=== PATIENT | female | born 1990 | race Caucasian/White ===

== ENCOUNTER 2017-01-13 13:42 | Day surgery (SDC) | payer OTHER ==
[2017-01-10 15:08] VITALS: BMI 19.5
[~2017-01-13 13:42] MED LIST: DEXAMETHASONE SOD PHOSPHATE 10 MG/ML 1 ML VIAL IV ONE; HEPARIN SODIUM,PORCINE 5,000 UNIT/ML 1 ML VIAL SQ ONE; HYDROmorphone 1 MG/ML 1 ML SYRINGE IVP PRN; LACTATED RINGERS 1,000 ML IV SCH; MIDAZOLAM 2 MG/2 ML VIAL IV PRN; ONDANSETRON 4 MG/2 ML VIAL IVP ONE; SCOPOLAMINE 1.5MG/72HR PATCH TRANSDERM ONE; ceFAZolin 2 GM in SODIUM CHLORIDE 0.9% 100 ML IVPB ONE
[2017-01-13] MEDS ORDERED: LIDOCAINE 1% 20 ML VIAL (10MG/ML) FOR IV START SQ ONE (14:07)
[2017-01-13] MEDS ORDERED: GLYCOPYRROLATE 0.2 MG/ML 2 ML VIAL ONE (15:30)
[2017-01-13] MEDS ORDERED: ROCURONIUM BROMIDE 10 MG/ML 10 ML VIAL IV ONE (15:30)
[2017-01-13] MEDS ORDERED: MIDAZOLAM 2 MG/2 ML VIAL ONE (15:30)
[2017-01-13] MEDS ORDERED: KETOROLAC 30 MG/ML 1 ML VIAL ONE (15:30)
[2017-01-13] MEDS ORDERED: LIDOCAINE 1% INJ 10MG/ML (20 ML MDV) ONE (15:30)
[2017-01-13] MEDS ORDERED: NEOSTIGMINE 1 MG/ML 10 ML VIAL ONE (15:30)
[2017-01-13] MEDS ORDERED: fentaNYL (PF) 50 MCG/ML 2 ML AMP ONE (15:30)
[2017-01-13] MEDS ORDERED: SUCCINYLCHOLINE CHLORIDE 100 MG/5 ML SYR IV ONE (15:30)
[2017-01-13] MEDS ORDERED: PROPOFOL 10 MG/ML 20 ML VIAL IV ONE (15:30)
[2017-01-13] MEDS ORDERED: BUPIVACAIN-EPI 0.5%-1:200,000 30 ML VIAL SQ ONE ×2 (15:39→16:47)
--- NOTE | 2017-01-13 15:54 | P.OP ---
Date of Procedure: 01/13/17 Preoperative Diagnosis: Postoperative Diagnosis: Procedure(s) Performed: Implants: Ventralex ST Hernia Patch 6.5 cm circular Anesthesia: GETA, local Pathology: none sent Condition: stable Disposition: PACU Indications for Procedure: Operative Findings: Description of Procedure: The patient was brought to the operating room and placed in supine position. General anesthesia with endotracheal intubation was performed as per anesthesia team. The right arm was tucked against the body and a footboard was applied. Chlorhexidine was used to prep the skin followed by application of sterile drapes and Ioban dressing. A timeout was performed to verify correct patient and correct procedure. Patient was confirmed to receive perioperative IV antibiotics , bilateral SCDs and 5000 units of subcutaneous heparin for VTE prophylaxis. A 5 mm skin incision was made along the left midaxillary line and a Veress needle was inserted to establish the pneumoperitoneum to a pressure of 15 mm of Hg. Using a 5 mm 30 laparoscope the peritoneal cavity was entered using the Optiview technique. Additional 12 mm trocar was placed in the mid axillary line in the left mid abdomen and robotic 8 mm trocar in the left lower abdomen. The 5 mm trocar was upsized to 8 mm robotic trocar. The da Malina robot was then docked. The 30 robotic camera was used. A robotic prograsp and monopolar scissors were inserted through 8 mm robotic trocars The hernia defect contained preperitoneal fat and omentum which were reduced using gentle traction and countertraction method. The falciform ligament was divided using monopolar scissors close to the anterior abdominal wall to create a landing zone for the mesh. A Sybotex circular mesh was tagged in the center using a prolene stitich and was rolled and introduced to the abdominal cavity via the 12 mm trocar. The hernia defect was closed primarily with running sutures using O- V lock by taking 1 cm bite on the fascia on either side of the defect. A David Danisha device was inserted through the middle of the hernia defect and the stay suture on the mesh was grasped to elevate the mesh against the anterior abdominal wall. The mesh was circumferentially sutured to the peritoneum of the anterior abdominal wall using 2-0 V lock without any folds or kinks. The robot was then undocked. Laparoscopic 30 degrees camera was reinserted. All trocar sites were examined. No evidence of bleeding. The 12 mm trocar site was closed using two transfascial sutures of 0 Vicryl which were placed using a Tipp24on device. The pneumoperitoneum was evacuated and all the skin incisions were closed using 4-0 Monocryl followed by Dermabond skin glue. Telfa and Tegaderm dressings were applied. The sponge, instrument and needle count were correct x2. Abdominal binder was applied. The patient was extubated and taken to post anesthesia care unit in stable condition.
[2017-01-13] MEDS ORDERED: LACTATED RINGERS 1,000 ML IV ONE ×2 (15:58)
[2017-01-13 17:28] VITALS: TEMP 98.1
[2017-01-13] MEDS ORDERED: ONDANSETRON 4 MG/2 ML VIAL IVP ONE (17:29)
[2017-01-13] MEDS ORDERED: HYDROmorphone 1 MG/ML 1 ML SYRINGE IVP ONE (17:33)
[2017-01-13 17:56] VITALS: RESP 16
[2017-01-13 19:04] VITALS: BP 136/80; PULSE 62
== END 2017-01-13 19:12 | disposition home or self-care (01) ==
LOC: OR 13:42
PROVIDERS: ATTEND Surgery
DX: K42.9 Umbilical hernia without obstruction or gangrene (principal); F17.200 Nicotine dependence, unspecified, uncomplicated; Z88.5 Allergy status to narcotic agent
CPT/HCPCS: 49652; S2900; 81025

== ENCOUNTER → 2019-05-02 | Outpatient (CLI) | payer OTHER ==
--- NOTE | 2019-05-02 11:38 | XR ---
EXAMINATION TYPE: XR shoulder complete RT DATE OF EXAM: 05/02/2019 COMPARISON: None HISTORY: Right shoulder pain TECHNIQUE: 3 views right shoulder FINDINGS: No acute fractures or dislocations are evident. Joint spaces preserved. Acromioclavicular j unction is normal. IMPRESSION: 1. Normal 3 view right shoulder.
== END | disposition home or self-care (01) ==
LOC: RADXRMAIN 11:11
PROVIDERS: ATTEND Family Medicine
DX: M25.511 Pain in right shoulder (principal)

== ENCOUNTER → 2020-09-08 | Outpatient (CLI) | payer OTHER ==
--- NOTE | 2020-09-09 07:40 | US ---
EXAMINATION TYPE: US pelvis complete transvag DATE OF EXAM: 09/08/2020 COMPARISON: NONE CLINICAL HISTORY: 29-year-old female R10.2 pelvic pain. TECHNIQUE: Transabdominal sonographic images of the pelvis were acquired. Transvaginal sonographic i mages were medically necessary to better assess the following anatomy: Endometrium Date of LMP: 3 years ago FINDINGS: EXAM MEASUREMENTS: Uterus: 6.3 x 3.9 x 4.6 cm Endometrial Stripe: 0.5 cm Right Ovary: 2.5 x 2.0 x 1.6 cm Left Ovary: 2.1 x 1.6 x 1.3 cm 1. Uterus: Retroverted and otherwise wnl 2. Endometrium: wnl, IUD visualized in good position 3. Right Ovary: wnl with follicular change 4. Left Ovary: wnl with follicular change 5. Bilateral Adnexa: wnl 6. Posterior cul-de-sac: wnl IMPRESSION: Retroverted uterus with IUD which appears appropriately positioned. Normal follicular change in the o varies. No pelvic free fluid.
== END | disposition home or self-care (01) ==
LOC: RADUSWWP 16:19
PROVIDERS: ATTEND Obstetrics & Gynecology
DX: N85.4 Malposition of uterus (principal); Z97.5 Presence of (intrauterine) contraceptive device
CPT/HCPCS: 76830; 76856

== ENCOUNTER 2021-12-07 08:28 | Outpatient (CLI) | payer OTHER ==
[2021-12-07 09:12] VITALS: BP 109/63; PULSE 66; RESP 15; TEMP 97.5
--- NOTE | 2021-12-07 22:04 | P.MSEPDOC ---
Presenting Problems - Arrival Data Date of Arrival on Unit: 12/07/21 Time of Arrival on Unit: 08:28 Mode of Transport: Ambulatory - Complaint OB-Reason for Admission/Chief Complaint: Decreased Movement Medical History - Information : 4 Para: 3 Term: 3 : 0 Abortions: Spontaneous or Elective: 0 Number of Living Children: 3 - Gestational Age Gestational Age by SANTOSH (wks/days): 28 Weeks and 6 Days - History Complications: Smoker Comment: pt state she has labs drawn for possible cholestasis on 12/06/2021 Review of Systems - Review of Systems Constitutional: No problems Breast: No problems ENT: No problems Cardiovascular: No problems Respiratory: No problems Gastrointestinal: No problems Genitourinary: No problems Musculoskeletal: No problems Neurological: No problems Skin: Itching Vital Signs - Temperature Temperature: 97.5 F Temperature Source: Temporal Artery Scan - Pulse Brachial Pulse Rate: 66 Pulse Assessment Method: Automatic Cuff - Respirations Respiratory Rate: 15 Oxygen Delivery Method: Room Air O2 Sat by Pulse Oximetry: 100 - Blood Pressure Right Arm Blood Pressure: 109/63 Blood Pressure Mean: 78 Blood Pressure Source: Automatic Cuff Medical Screen Scoring - Assessment - Baby A Heart Rate - NICHD Category: Category I (Normal) Physician Notification - Physician Notified Physician Notified Date: 12/07/21 Physician Notified Time: 09:07 Physician: Lor Tucker New Order Received: Yes - Notification Comment Comment: reported pt arrived with c/o decreased movement. After cold apple juice, movement is active per pt with a reactive NST. DC pt home per t.o. Dr Tucker Maternal Triage Index - Maternal Triage Index Presenting for scheduled procedure w/no complaint: No - Stat/Priority 1 Stat Priority 1: No - Urgent/Priority 2 Urgent Priority 2: Yes Provider Notified: Lor Tucker Provider Notified Time: 09:07 Criteria Met for Priority 2: decreased movement - Prompt/Priority 3 Prompt Priority 3: No - Non-Urgent/Priority 4 Non-Urgent Priority 4: No Disposition - Disposition OB Disposition: Triage, Discharge to home, Written follow up instructions reviewed Discharge Date: 12/07/21 Discharge Time: 09:11 I agree with the RN Medical Screening Exam: Yes Case reviewed; plan agreed upon as documented in EMR&OBIX.: Yes Diagnosis: DECREASED MOVEMENTS, THIRD TRIMESTER, UNSP
== END 2021-12-07 09:14 | disposition home or self-care (01) ==
LOC: FBPOP 08:28
PROVIDERS: ATTEND Obstetrics & Gynecology
DX: O36.8130 Decreased fetal movements, third trimester, not applicable or unspecified (principal); Z3A.28 28 weeks gestation of pregnancy
CPT/HCPCS: 59025; G0463; 99213

== ENCOUNTER 2022-01-27 11:51 | Outpatient (CLI) | payer OTHER ==
[2022-01-27 12:57] VITALS: BP 101/58; PULSE 95; RESP 16; TEMP 97.1
--- NOTE | 2022-01-29 21:24 | P.MSEPDOC ---
Presenting Problems - Arrival Data Date of Arrival on Unit: 01/27/22 Time of Arrival on Unit: 11:51 Mode of Transport: Ambulatory - Complaint OB-Reason for Admission/Chief Complaint: Possible Onset of Labor Comment: Contrx since 929, q5-6min apart Medical History - Information : 4 Para: 3 Term: 3 Number of Living Children: 3 - Gestational Age Gestational Age by SANTOSH (wks/days): 36 Weeks and 1 Days Review of Systems - Review of Systems Constitutional: No problems Breast: No problems ENT: No problems Cardiovascular: No problems Respiratory: No problems Gastrointestinal: No problems Genitourinary: No problems Musculoskeletal: No problems Neurological: No problems Skin: No problems Vital Signs - Temperature Temperature: 97.1 F Temperature Source: Oral - Pulse Right Sitting Brachial Pulse Rate: 95 Pulse Assessment Method: Automatic Cuff - Respirations Respiratory Rate: 16 Oxygen Delivery Method: Room Air O2 Sat by Pulse Oximetry: 96 - Blood Pressure Right Arm Sitting Blood Pressure: 101/58 Blood Pressure Mean: 72 Blood Pressure Source: Automatic Cuff Medical Screen Scoring - Cervical Exam Dilation (cm): 1 Effacement (%): 0 Station: -3 Membranes: Intact - Assessment - Baby A Baseline FHR: 130 Heart Rate - NICHD Category: Category I (Normal) Physician Notification - Physician Notified Physician Notified Date: 01/27/22 Physician Notified Time: 12:26 Physician: Lor Tucker Order Received: Yes - Notification Comment Comment: Spk c\Dr. Tucker, advsd of pts arrival to triage, c/o contrx q5-6min x 2.5 hrs. SVE 1/thick/high. Reactive FHT. States pt may be discharged home or observed x 1 hr and. rechecked if pt requests. Pt ok c\discharge home. Maternal Triage Index - Maternal Triage Index Presenting for scheduled procedure w/no complaint: No - Stat/Priority 1 Stat Priority 1: No - Urgent/Priority 2 Urgent Priority 2: No - Prompt/Priority 3 Prompt Priority 3: Yes Criteria Met for Priority 3: Contrx Disposition - Disposition OB Disposition: Discharge to home, Written follow up instructions reviewed Discharge Date: 01/27/22 Discharge Time: 12:50 I agree with the RN Medical Screening Exam: Yes Case reviewed; plan agreed upon as documented in EMR&OBIX.: Yes Diagnosis: FALSE LABOR BEFORE 37 COMPLETED WEEKS OF GEST, THIRD TRI
== END 2022-01-27 12:50 | disposition home or self-care (01) ==
LOC: FBPOP 11:51
PROVIDERS: ATTEND Obstetrics & Gynecology
DX: O47.03 False labor before 37 completed weeks of gestation, third trimester (principal); Z3A.36 36 weeks gestation of pregnancy
CPT/HCPCS: 59025; G0463; 99213

== ENCOUNTER 2022-02-17 06:00 | Inpatient (IN) | payer OTHER ==
--- NOTE | 2022-02-16 20:18 | P.HPOB ---
History of Present Illness H&P Date: 02/16/22 Chief Complaint: Induction of labor This is a 31 y.o. female, 4, para 3, with an estimated date of confinement of 02/23/2022, estimated gestational age of 39-1/7 weeks, who presents for induction of labor. She complains of irregular contractions and pressure. labs: Hepatitis B surface antigen-neg RPR-NR Rubella-immune Blood type-A+ Antibody screen-neg HIV-NR Hgb-12.2 Random glucose-82 1 hr. GTT-108 GBS-neg Review of Systems Constitutional: Denies chills, Denies fever Eyes: denies blurred vision, denies pain Ears, nose, mouth and throat: Denies headache, Denies sore throat Cardiovascular: Denies chest pain, Denies shortness of breath Respiratory: Denies cough Gastrointestinal: Reports abdominal pain (irregular menses) Genitourinary: Reports pelvic pain, Reports , Denies dysuria, Denies hematuria Musculoskeletal: Reports low back pain Integumentary: Denies pruritus, Denies rash Neurological: Denies numbness, Denies weakness Psychiatric: Denies anxiety, Denies depression Past Medical History Past Medical History: GERD/Reflux Additional Past Medical History / Comment(s): UMBILICAL HERNIA. "HEAD COLD FOR PAST DAY OR SO." History of Any Multi-Drug Resistant Organisms: None Reported Past Surgical History: No Surgical Hx Reported Additional Past Surgical History / Comment(s): EXC WISDOM TEETH Past Anesthesia/Blood Transfusion Reactions: No Reported Reaction Past Psychological History: ADD/ADHD Smoking Status: Former smoker Past Alcohol Use History: None Reported Past Drug Use History: None Reported - Past Family History Mother Family Medical History: Diabetes Mellitus Medications and Allergies Home Medications Medication Instructions Recorded Confirmed Type Omeprazole [PriLOSEC] 10 mg PO PRN 01/27/22 01/27/22 History Vit No.180/Iron/Folic 1 each PO 02/16/22 History [ Plus Tablet] Allergies Allergy/AdvReac Type Severity Reaction Status Date / Time codeine AdvReac Vomiting Verified 01/27/22 12:04 Exam Osteopathic Statement: *. No significant issues noted on an osteopathic structural exam other than those noted in the History and Physical/Consult. HEENT: within normal limits Heart: regular rate and rhythm Lungs: clear to auscultation bilaterally Abd: , non-tender heart tones: 140's by doppler Extremities: neg Severiano's - OBG Physical Exam Breast: both: normal (no masses) Assessment and Plan (1) 39 weeks gestation of Status: Acute Code(s): Z3A.39 - 39 WEEKS GESTATION OF SNOMED Code(s): 19190142 Plan: Proceed with oxytocin induction of labor. Expectant management. Epidural anesthesia if desired.
[2022-02-17] MEDS ORDERED: TERBUTALINE 1 MG/ML VIAL SQ PRN (06:12)
[2022-02-17] MEDS ORDERED: OXYTOCIN 10 UNIT/ML 1 ML VIAL IM PRN (06:12)
[2022-02-17] MEDS ORDERED: CARBOPROST TROMETHAMINE 250 MCG/ML 1 ML AMP IM PRN (06:12)
[2022-02-17] MEDS ORDERED: LIDOCAINE 0.5% (PF) 5 MG/ML (50 ML SDV) SQ PRN (06:12)
[2022-02-17] MEDS ORDERED: METHYLERGONOVINE 0.2 MG/ML 1 ML AMP IM PRN (06:12)
[2022-02-17] MEDS ORDERED: LIDOCAINE 1% (10MG/ML) FOR IV START INTRADERMA PRN (06:12)
[2022-02-17] MEDS: LACTATED RINGERS 1,000 ML IV SCH ×3 (06:20→15:24)
[2022-02-17 06:32] LABS: Basophils # (A) 0.1 k/uL (0-0.2); Basophils % (A) 0 %; Eosinophils # (A) 0.1 k/uL (0-0.7); Eosinophils % (A) 1 %; HCT 33.8 % (34.0-46.0); Hypochromasia Slight; Lymphocytes # (A) 1.7 k/uL (1.0-4.8); Lymphocytes % (A) 14 %; MCH 27.8 pg (25.0-35.0); MCHC 32.6 g/dL (31.0-37.0); MCV 85.2 fL (80.0-100.0); Mean Platelet Volume 8.1; Monocytes # (A) 0.6 k/uL (0-1.0); Monocytes % (A) 5 %; Neutrophils # (A) 9.1 k/uL (1.3-7.7); Neutrophils % (A) 78 %; Platelet Count 300 k/uL (150-450); RBC 3.97 m/uL (3.80-5.40); RDW 13.7 % (11.5-15.5); WBC 11.8 k/uL (3.8-10.6)
[2022-02-17] MEDS: OXYTOCIN 30 UNITS/500 ML NS 30 UNIT in SALINE 1 500ML.BAG IV SCH ×2 (06:35→19:40)
[2022-02-17] MEDS: BUTORPHANOL 1 MG/ML 1 ML VIAL IV PRN ×2 (11:01→13:17)
[2022-02-17] MEDS ORDERED: SODIUM CHLORIDE 0.9% 100 ML BAG ONE (14:50)
[2022-02-17] MEDS ORDERED: ePHEDrine 50 MG/ML 1 ML VIAL ONE (14:50)
[2022-02-17] MEDS ORDERED: fentaNYL (PF) 50 MCG/ML 5 ML AMP ONE (14:50)
[2022-02-17] MEDS ORDERED: ROPIVACAINE 5MG/ML 20ML VIAL ONE (14:50)
--- NOTE | 2022-02-17 17:14 | P.PROBDLV ---
Vaginal Delivery Note - . Vaginal Delivery Note: The patient progressed to complete dilation after oxytocin induction of labor and artificial rupture membranes with clear fluid noted. She did receive a few doses of Stadol followed by epidural. Once reaching complete, she began pushing. 's head came to a crown. With one further push, the 's head delivered across the perineum followed by the anterior shoulder. At this time tight nuchal cord 2 was noted. It was doubly clamped and cut and then reduced around the 's head. With one further push the remainder the easily delivered. was immediately taken to warmer for evaluation. A viable female infant was noted with scores of 6 at 1 minute and 8 at 5 minutes. weight is 7 lbs. 3 oz. Placenta delivered shortly thereafter, intact, with a three-vessel cord. Of note there is a very marginal cord insertion with vessels going through the membranes. Uterus contracted fairly well after uterine massage was carried out and oxytocin was given. Inspection of the perineum revealed a very small abrasion but no active bleeding. Estimated blood loss is approximately 150 mL's. Both mother and infant are in stable condition.
[2022-02-17] MEDS ORDERED: LANOLIN CREAM 5 GM TUBE TOPICAL PRN (17:59)
[2022-02-17] MEDS ORDERED: diphenhydrAMINE 50 MG/ML 1 ML VIAL IVP PRN ×2 (17:59)
[2022-02-17] MEDS ORDERED: diphenhydrAMINE 50 MG CAP PO PRN (17:59)
[2022-02-17] MEDS ORDERED: BENZOCAINE/MENTHOL SPRAY 1 GM/SPRAY AEROSOL TOPICAL PRN (17:59)
[2022-02-17] MEDS ORDERED: SIMETHICONE 80 MG CHEWABLE PO PRN (17:59)
[2022-02-17] MEDS ORDERED: diphenhydrAMINE 25 MG CAP PO PRN (17:59)
[2022-02-17] MEDS ORDERED: HYDROCORTISONE 2.5% RECTAL CREAM 30 GM TUBE RECTAL PRN (17:59)
[2022-02-17] MEDS ORDERED: ZOLPIDEM 5 MG TAB PO PRN (17:59)
[2022-02-17] MEDS: IBUPROFEN 600 MG TAB PO PRN (21:39)
[2022-02-17] MEDS: SENNOSIDES-DOCUSATE SODIUM 1 EACH TAB PO SCH (21:44)
[2022-02-18] MEDS: IBUPROFEN 600 MG TAB PO PRN ×3 (02:56→14:37)
[2022-02-18 04:48] VITALS: TEMP 97.9
[2022-02-18 06:29] LABS: Basophils % (A) 0 %; Eosinophils # (A) 0.1 k/uL (0-0.7); Eosinophils % (A) 1 %; HCT 34.5 % (34.0-46.0); HGB 11.1 gm/dL (11.4-16.0); Hypochromasia Slight; Lymphocytes # (A) 1.5 k/uL (1.0-4.8); Lymphocytes % (A) 14 %; MCH 27.5 pg (25.0-35.0); MCHC 32.2 g/dL (31.0-37.0); MCV 85.6 fL (80.0-100.0); Mean Platelet Volume 8.2; Monocytes # (A) 0.6 k/uL (0-1.0); Monocytes % (A) 6 %; Neutrophils # (A) 8.2 k/uL (1.3-7.7); Neutrophils % (A) 77 %; Platelet Count 252 k/uL (150-450); RBC 4.03 m/uL (3.80-5.40); RDW 13.8 % (11.5-15.5); WBC 10.6 k/uL (3.8-10.6)
[2022-02-18] MEDS: SENNOSIDES-DOCUSATE SODIUM 1 EACH TAB PO SCH (08:39)
[2022-02-18] MEDS ORDERED: ACETAMINOPHEN TAB 325 MG TAB PO PRN (08:42)
[2022-02-18 08:45] VITALS: BP 117/65; PULSE 98; RESP 14
--- NOTE | 2022-02-18 09:57 | P.DS ---
Providers Date of admission: 02/17/22 06:02 Expected date of discharge: 02/18/22 Attending physician: Lor Tucker Primary care physician: Stated None - Discharge Diagnosis(es) (1) 39 weeks gestation of Current Visit: No Status: Acute Hospital Course: This is a 31-year-old female 4 para 3 who presented for induction of labor. She underwent oxytocin induction of labor and delivered vaginally a viable female infant on 02/17/2022 with scores of 6 at 1 minute and 8 at 5 minutes and infant weight of 7 lbs. 3 oz. Her course has been uncomplicated. She is breast-feeding. Lochia is decreasing. Pain is fairly well controlled with ibuprofen and Tylenol. Vital signs are stable. Abdomen is soft with fundus firm and minimal tenderness noted. Extremities show negative Homans. Impression is status post vaginal delivery day #1. Plan is to discharge home later today. Routine instructions are given. She has a breast pump. She will be given a prescription for ibuprofen. She is advised to call the office if she has any further questions or concerns prior to her appointment time. She is advised follow-up in the office in 6 weeks for check. Procedures: Oxytocin induction of labor Spontaneous vaginal delivery of a viable female infant on 02/17/2022 Patient Condition at Discharge: Stable Plan - Discharge Summary New Discharge Prescriptions: New RX: Ibuprofen [Motrin] 600 mg PO Q6HR PRN #60 tab PRN Reason: Mild Pain (Scale 1 To 3) No Action Omeprazole [PriLOSEC] 10 mg PO PRN PRN Reason: Heartburn Discharge Medication List Omeprazole [PriLOSEC] 10 mg PO PRN 01/27/22 [History] RX: Ibuprofen [Motrin] 600 mg PO Q6HR PRN #60 tab 02/18/22 [Rx] Follow up Appointment(s)/Referral(s): Lor Tucker DO [Doctor of Osteopathic Medicine] - 03/28/22 4:00 pm Activity/Diet/Wound Care/Special Instructions: Instructions 1. Do not begin any exercise program for 3 weeks. 2. Do not resume sexual relations for 3 weeks or longer if uncomfortable. 3. You may take tub baths or showers at any time. 4. You may use tampons if desired after 3 weeks. 5. Keep the area of episiotomy (stitches) clean and dry. 6. If you are not nursing, wear a good fitting, supportive bra during the day and limit fluid intake for at least 1 week to prevent breast engorgement. 7. Call the office, [phone], within the next week to make appointment for your 6 week checkup if it has not already been made. 8. Report any of the following occurrences to the doctor promptly: a. Heavy, excessive bleeding b. Chills, fever c. Burning or frequency of urination d. Pain or redness and breasts if nursing e. Increasing pain or swelling in episiotomy (stitches). In addition to the above instructions, the following additional should be followed: 1. No heavy lifting or straining (exercising) until after 6 week checkup. 2. Keep abdominal incision clean and dry: You may wear a dressing if more comfortable. 3. Make office appointment for 10 days after going home or as instructed by her doctor. Discharge Disposition: HOME SELF-CARE
== END 2022-02-18 18:00 | disposition home or self-care (01) | DRG 806 ==
LOC: 4FBP 06:02
PROVIDERS: ADMIT Obstetrics & Gynecology; ATTEND Obstetrics & Gynecology
PROC: 10E0XZZ Delivery of Products of Conception, External Approach (ICD-10-PCS; principal; 2022-02-17)
PROC: 3E033VJ Introduction of Other Hormone into Peripheral Vein, Percutaneous Approach (ICD-10-PCS; 2022-02-17)
PROC: 10907ZC Drainage of Amniotic Fluid, Therapeutic from Products of Conception, Via Natural or Artificial Opening (ICD-10-PCS; 2022-02-17)
DX: O69.1XX0 Labor and delivery complicated by cord around neck, with compression, not applicable or unspecified (principal); O44.23 Partial placenta previa NOS or without hemorrhage, third trimester; Z37.0 Single live birth; Z28.310 Unvaccinated for COVID-19; K21.9 Gastro-esophageal reflux disease without esophagitis; O99.62 Diseases of the digestive system complicating childbirth; Z79.899 Other long term (current) drug therapy; Z3A.39 39 weeks gestation of pregnancy; Z87.891 Personal history of nicotine dependence; Z86.59 Personal history of other mental and behavioral disorders; Z83.3 Family history of diabetes mellitus
CPT/HCPCS: 85025; 86850; 86900; 86901

== ENCOUNTER → 2022-04-25 | Outpatient (CLI) | payer OTHER ==
[2022-04-25 23:46] LABS: Basophils # (A) 0.03 X 10*3/uL (0.00-0.10); Basophils % (A) 0.4 %; Eosinophils # (A) 0.05 X 10*3/uL (0.04-0.35); Eosinophils % (A) 0.7 %; HCT 37.4 % (37.2-46.3); HGB 12.3 g/dL (12.0-15.0); Immature Grans, Automated 0.3 %; Lymphocytes # (A) 2.57 X 10*3/uL (0.90-5.00); Lymphocytes % (A) 36.2 %; MCH 26.9 pg (27.0-32.0); MCHC 32.9 g/dL (32.0-37.0); MCV 81.8 fL (80.0-97.0); Mean Platelet Volume 9.9 fL (9.5-12.2); Monocytes # (A) 0.51 X 10*3/uL (0.20-1.00); Monocytes % (A) 7.2 %; NRBC Per 100 WBC 0 /100 WBCS (0.0-0.0); Neutrophils # (A) 3.92 X 10*3/uL (1.80-7.70); Neutrophils % (A) 55.2 %; Platelet Count 328 X 10*3/uL (140-440); RBC 4.57 X 10*6/uL (4.10-5.20); RDW 16.2 % (11.5-14.5)
== END | disposition home or self-care (01) ==
LOC: LABPAT 14:50
PROVIDERS: ATTEND Obstetrics & Gynecology
DX: Z01.812 Encounter for preprocedural laboratory examination (principal)
CPT/HCPCS: 85025

== ENCOUNTER 2022-04-28 06:02 | Day surgery (SDC) | payer OTHER ==
[2022-04-26 13:15] VITALS: BMI 20.2
--- NOTE | 2022-04-27 18:42 | P.HPOB ---
History of Present Illness H&P Date: 04/27/22 Chief Complaint: Family planning This is a 31 y.o. female, 4, para 4, who presents for robotic-assisted laparoscopic bilateral tubal ligation via fulgaration with Mira for family planning. She recently delivered her last child. OB Hx: . History of 4 vaginal deliveries. [employer] Operator Hx: History of chlamydia treated in past. Social Hx: . Homemaker. Review of Systems Constitutional: Denies chills, Denies fever Eyes: denies blurred vision, denies pain Ears, nose, mouth and throat: Denies headache, Denies sore throat Cardiovascular: Denies chest pain, Denies shortness of breath Respiratory: Denies cough Gastrointestinal: Denies abdominal pain, Denies diarrhea, Denies nausea, Denies vomiting Genitourinary: Denies dysuria, Denies hematuria Musculoskeletal: Denies myalgias Integumentary: Denies pruritus, Denies rash Neurological: Denies numbness, Denies weakness Psychiatric: Reports difficulty concentrating, Denies anxiety, Denies depression Past Medical History Past Medical History: GERD/Reflux Additional Past Medical History / Comment(s): "Hole in heart since ". History of Any Multi-Drug Resistant Organisms: None Reported Past Surgical History: Hernia Repair Additional Past Surgical History / Comment(s): [place] teeth extracted, umbilical hernia repair. Past Anesthesia/Blood Transfusion Reactions: Previous Problems w/ Anesthesia, Family History of Problems w/ Anesthesia, Motion Sickness Additional Past Anesthesia/Blood Transfusion Reaction / Comment(s): Grandmother has hard time waking up. Past Psychological History: ADD/ADHD Smoking Status: Current every day smoker Past Alcohol Use History: None Reported Additional Past Alcohol Use History / Comment(s): SMOKER SINCE AGE 19, 1/2 PPD OR LESS. Past Drug Use History: None Reported - Past Family History Mother Family Medical History: Diabetes Mellitus Medications and Allergies Home Medications Medication Instructions Recorded Confirmed Type No Known Home Medications 04/26/22 04/28/22 History Allergies Allergy/AdvReac Type Severity Reaction Status Date / Time codeine AdvReac Vomiting Verified 04/28/22 06:44 Exam Osteopathic Statement: *. No significant issues noted on an osteopathic structural exam other than those noted in the History and Physical/Consult. HEENT: within normal limits Heart: regular rate and rhythm Lungs: clear to auscultation bilaterally Abdomen: soft, non-tender Pelvic: uterus small, retroverted, non-tender with no adnexal masses or tenderness Extremities: negative Severiano's Assessment and Plan (1) Family planning Current Visit: No Status: Acute Code(s): Z30.09 - ENCOUNTER FOR OTH GENERAL CNSL AND ADVICE ON CONTRACEPTION SNOMED Code(s): 970968915 Plan: Proceed with robotic-assisted laparoscopic bilateral tubal ligation via fulgaration with Davinci. I have discussed the risks, benefits, and alternative therapies for the above- mentioned procedure and for both sedation/anesthesia as well as necessary blood products administration, if indicated, as they pertain to this patient. The patient has indicated her understanding and acceptance of the risks and procedures discussed.
[~2022-04-28 06:02] MED LIST changes: -DEXAMETHASONE SOD PHOSPHATE 10 MG/ML 1 ML VIAL IV ONE; -HEPARIN SODIUM,PORCINE 5,000 UNIT/ML 1 ML VIAL SQ ONE; -HYDROmorphone 1 MG/ML 1 ML SYRINGE IVP PRN; -LACTATED RINGERS 1,000 ML IV SCH; -MIDAZOLAM 2 MG/2 ML VIAL IV PRN; -ONDANSETRON 4 MG/2 ML VIAL IVP ONE; +Pre Op ABX Message 1 EACH MISC MISCELLANE ONE; -SCOPOLAMINE 1.5MG/72HR PATCH TRANSDERM ONE; -ceFAZolin 2 GM in SODIUM CHLORIDE 0.9% 100 ML IVPB ONE
[2022-04-28] MEDS ORDERED: ONDANSETRON 4 MG/2 ML VIAL IVP ONE ×2 (06:14→06:54)
[2022-04-28] MEDS ORDERED: LACTATED RINGERS 1,000 ML IV SCH (06:14)
[2022-04-28] MEDS ORDERED: DEXAMETHASONE SOD PHOSPHATE 4 MG/ML 1 ML VIAL IV ONE (06:14)
[2022-04-28] MEDS ORDERED: DEXAMETHASONE SOD PHOSPHATE 4 MG/ML 1 ML VIAL IVP ONE (06:54)
[2022-04-28] MEDS ORDERED: PROPOFOL 10 MG/ML 20 ML VIAL IV ONE (07:08)
[2022-04-28] MEDS ORDERED: KETOROLAC 30 MG/ML 1 ML VIAL ONE (07:08)
[2022-04-28] MEDS ORDERED: MIDAZOLAM 2 MG/2 ML VIAL ONE (07:08)
[2022-04-28] MEDS ORDERED: GLYCOPYRROLATE 0.2 MG/ML 2 ML VIAL ONE (07:08)
[2022-04-28] MEDS ORDERED: fentaNYL (PF) 50 MCG/ML 2 ML AMP ONE (07:08)
[2022-04-28] MEDS ORDERED: NEOSTIGMINE 1 MG/ML 10 ML VIAL ONE (07:08)
[2022-04-28] MEDS ORDERED: SUCCINYLCHOLINE CHLORIDE 200 MG/10 ML VIAL IV ONE (07:08)
[2022-04-28] MEDS ORDERED: ROCURONIUM 10 MG/ML (5 ML VIAL) IV ONE (07:08)
[2022-04-28] MEDS ORDERED: LIDOCAINE 2% INJ 20 MG/ML (2 ML VIAL) ONE (07:08)
[2022-04-28] MEDS ORDERED: BUPIVACAINE (PF) 0.25% 30 ML VIAL SQ ONE ×2 (07:39→08:09)
[2022-04-28] MEDS ORDERED: HYDROmorphone 0.5 MG/0.5 ML SYRINGE IVP ONE (08:35)
[2022-04-28] MEDS ORDERED: LACTATED RINGERS 1,000 ML IV ONE (08:40)
[2022-04-28] MEDS: fentaNYL (PF) 50 MCG/ML 2 ML AMP IV PRN ×2 (08:41→08:44)
--- NOTE | 2022-04-28 08:44 | P.OP ---
Date of Procedure: 04/28/22 Preoperative Diagnosis: Family planning Postoperative Diagnosis: Family planning Procedure(s) Performed: Robotic-assisted laparoscopic bilateral tubal ligation via fulguration with da Malina Anesthesia: JAYLIN Surgeon: Lor Tucker Estimated Blood Loss (ml): 10 Pathology: none sent Condition: stable Disposition: same day Indications for Procedure: This is a 31 y.o. female, 4, para 4, who presents for robotic-assisted laparoscopic bilateral tubal ligation via fulgaration with Davinci for family planning. She recently delivered her last child. Operative Findings: Normal uterus tubes and ovaries are noted. There is some omental adhesions just below the umbilicus and on the left upper quadrant of the abdomen. Description of Procedure: The patient is taken to the operating room and she is placed in the dorsal lith otomy position on a Huggie board with arms tucked. She is prepped and draped in the normal sterile fashion. Her bladder is drained with a catheter and then removed. Examination is performed under anesthesia. Uterus is found to be retroverted with no adnexal masses palpated. Next a weighted speculum was placed in the patient's vagina and a right angle retractor was used to visualize the cervix. The anterior lip of the cervix is grasped with an Allis clamp. Uterus is sounded to 9 cm. A kroner uterine manipulator is then inserted through the cervix and the balloon is inflated. All other insulins are removed from the vagina including the Allis clamp. Gloves are changed and attention was turned to the abdomen. The uterus was anteverted and a tarsha was placed on the abdomen at the fundus of the uterus. Next an incision was made approximate 20 cm above the fundus of the uterus just above the umbilicus. A 5 mm disposable blade this trocar is then inserted with low flow under direct visualization to the abdominal cavity. Once inside pneumoperitoneum was achieved. There was noted to be an omental adhesion just below the trocar but adequate visualization was noted. Next another incision was placed in the right mid abdomen about the level of the umbilicus approximately 8 cm lateral to the umbilicus. An 8 mm robotic trocar was then placed under direct visualization. The camera was then placed through this port and an incision was made in the left abdomen midline approximately 8 cm lateral to the umbilicus. The 8 mm robotic trocar was then placed through this incision under direct visualization. There were some omental adhesions next to this port. Next the 5 mm super umbilical port is replaced with an 8 mm robot trocar under direct visualization. Next the robot w as then docked to the patient from the left side. Trochars were attached to the robot. The camera was inserted through the supraumbilical port and then instruments were placed with a Martinez on the left port and a fenestrated bipolar on the right port with energy attached. The smoke evacuator was placed on the right port. At this point gloves are changed and I sat at the [employer] Malina console. Inspection of the pelvic contents revealed normal uterus tubes and ovaries. The previously noted adhesions are visualized. Next the Martinez was used to grasp the end of the left fallopian tube. The fenestrated bipolar was then used to grasp the midportion of the tube and bipolar energy was used several times to cauterize approximately 2-3 cm segment of the tube. The same procedure was carried out on the right fallopian tube. Excellent hemostasis is noted. A picture is taken. Next I returned to the abdomen and the pneumoperitoneum is released after undocking the robot. All instruments are removed from the ports. The ports were then removed from the abdomen. Incisions are sutured with 4-0 undyed Vicryl suture with a subcutaneous stitch. There was one area on the right incision that was oozing and therefore a interrupted stitch was placed for hemostasis. Incisions were then injected with quarter percent Marcaine. Approximately 9 mL were used. Steri-Strips and bandages were placed. The kroner uterine manipulator is then deflated and removed. All sponge and needle counts are correct. The patient is then taken to recovery room in stable condition.
[2022-04-28 08:57] VITALS: TEMP 97.2
[2022-04-28 09:41] VITALS: RESP 18
[2022-04-28] MEDS ORDERED: HYDROcodone/APAP 5-325MG 1 EACH TAB ONE (10:15)
[2022-04-28 10:52] VITALS: BP 118/54; PULSE 54
== END 2022-04-28 10:57 | disposition home or self-care (01) ==
LOC: OR 06:02
PROVIDERS: ATTEND Obstetrics & Gynecology
DX: Z30.2 Encounter for sterilization (principal); K21.9 Gastro-esophageal reflux disease without esophagitis; F17.210 Nicotine dependence, cigarettes, uncomplicated; Z88.5 Allergy status to narcotic agent; Z83.3 Family history of diabetes mellitus
CPT/HCPCS: 58670; 81025; J2250; J0330; J1100; J2710; J2405; J3010; J1885; J2704; J1170; J2001